=== PATIENT | male | born 1965 | race Two or more races ===

== ENCOUNTER 2016-09-27 19:44 | Emergency (ER) | payer OTHER ==
[~2016-09-27] VITALS: Ht 182.9 cm; Wt 87.0 kg
[~2016-09-27 19:44] MED LIST: ASPI81TA3 PO; BENA20TA48 PO
[2016-09-27 19:49] VITALS: Ht 182.9 cm; Wt 87.0 kg
[2016-09-27] MEDS ORDERED: SOD CHLORIDE 0.9% 500 ML IV STA (21:36)
[2016-09-27] MEDS ORDERED: morphine 4 MG/ML VIAL IV STA (21:36)
[2016-09-27] MEDS ORDERED: ONDANSETRON 4 MG INJ IV STA (21:36)
[2016-09-27] MEDS ORDERED: ASPIRIN 325 MG TAB PO STA (21:36)
[2016-09-27] MEDS ORDERED: NITROGLYCERIN 2% 1 GM OINT PKT TD STA (21:36)
[2016-09-27 22:21] LABS: BASOPHILS % 0.5 % (0.0-2.0); EOSINOPHILS # 0.3 10^3/ul (0.0-0.5); EOSINOPHILS % 3.6 % (0.0-7.0); LYMPHOCYTES # 2.8 10^3/ul (0.8-2.9); LYMPHOCYTES % 31.2 % (15.0-51.0); MEAN CORPUSCULAR HEMOGLOBIN 31.5 pg (29.0-33.0); MEAN CORPUSCULAR HGB CONC 34.2 g/dl (32.0-37.0); MEAN PLATELET VOLUME 10.7 fl (7.4-10.4); MONOCYTE # 0.7 10^3/ul (0.3-0.9); MONOCYTES % 8.1 % (0.0-11.0); NEUTROPHILS % 56.3 % (39.0-77.0); PLATELET COUNT 252 10^3/UL (140-415); RED BLOOD COUNT 4.13 10^6/ul (4.70-6.10); RED CELL DISTRIBUTION WIDTH 12.2 % (11.5-14.5); WHITE BLOOD COUNT 8.8 10^3/ul (4.8-10.8)
[2016-09-27 22:34] LABS: INR 1.02; PROTIME 13.4 Sec (12.2-14.2)
[2016-09-27 22:49] LABS: ALANINE AMINOTRANSFERASE 59 IU/L (13-69); ALBUMIN 4.2 g/dl (3.3-4.9); ALBUMIN/GLOBULIN RATIO 1.13; ALKALINE PHOSPHATASE 70 IU/L (42-121); ANION GAP 18 (8-16); ASPARTATE AMINO TRANSFERASE 33 IU/L (15-46); BILIRUBIN,INDIRECT 0.6 mg/dl (0-1.1); BILIRUBIN,TOTAL 0.6 mg/dl (0.2-1.3); BLOOD UREA NITROGEN 19 mg/dl (7-20); CALCIUM 9.5 mg/dl (8.4-10.2); CARBON DIOXIDE 28 mmol/L (21-31); CHLORIDE 102 mmol/L (97-110); CREATININE 0.94 mg/dl (0.61-1.24); GLUCOSE 114 mg/dl (70-220); POTASSIUM 3.8 mmol/L (3.5-5.1); SODIUM 144 mmol/L (135-144); TOTAL PROTEIN 7.9 g/dl (6.1-8.1)
--- NOTE | 2016-09-27 22:59 | RADRPT ---
PROCEDURE: XR Chest. CLINICAL INDICATION: Chest pain. TECHNIQUE: Single frontal view of the chest. COMPARISON: None. FINDINGS: Mild cardiomegaly. Hypoinflated lungs with mild vascular crowding at the lung bases. The lungs oth erwise clear. No signs of pleural fluid or pneumothorax are seen. The osseous structures and soft t issues are unremarkable. IMPRESSION: Hypoinflated lungs with mild vascular crowding at the lung bases. RPTAT: [facility] Physician Tulio Date Time Electronically viewed and signed by Physician Tulio on 09/27/2016 22:59 RS/
[2016-09-27 23:00] LABS: B-TYPE NATRIURETIC PEPTIDE 17 PG/ML (0-125)
[2016-09-27 23:04] LABS: TROPONIN-I < 0.012 ng/ml (0.00-0.12)
[2016-09-27 23:20] VITALS: TEMP 97.4
--- NOTE | 2016-09-27 23:33 | ERD ---
ER Documentation Chief Complaint Date/Time DATE: 09/27/16 TIME: 23:32 Chief Complaint pressure like chest pain radaiting to back x 2 days HPI A 51-year-old male with pressure-like chest pain rating to back for 2 days. He says he feels like he strained his chest wall when he picked up something heavy. Denies any diaphoresis or shortness of breath. Denies any nausea vomiting fevers or chills. Denies any other current issues. ROS All systems reviewed and are negative except as per history of present illness. Medications Home Meds Reported Medications Aspirin (Aspirin) 81 Mg Chew, 81 MG PO DAILY, TAB.CHEW 11/05/13 Benazepril Hcl* (Benazepril Hcl*) 20 Mg Tablet, 20 MG PO DAILY, TAB 11/05/13 Allergies Allergies: Coded Allergies: No Known Allergy (Unverified , 11/09/13) PMhx/Soc Medical and Surgical Hx: pt denies Surgical Hx History of Surgery: No Anesthesia Reaction: No Hx Neurological Disorder: No Hx Respiratory Disorders: No Hx Cardiac Disorders: Yes (htn, hyperlipidemia ) Hx Psychiatric Problems: No Hx Miscellaneous Medical Probl: No Hx Alcohol Use: No Hx Substance Use: No Hx Tobacco Use: No Smoking Status: Never smoker Physical Exam Vitals Vital Signs Date Time Temp Pulse Resp B/P Pulse Ox O2 Delivery O2 Flow Rate FiO2 09/27/16 23:20 97.4 78 20 127/82 99 Room Air 09/27/16 21:37 97.4 78 20 151/70 99 Room Air 09/27/16 19:49 97.4 98 20 170/88 99 Physical Exam Const: [] Head: Atraumatic Eyes: Normal Conjunctiva ENT: Normal External Ears, Nose and Mouth. Neck: Full range of motion..~ No meningismus. Resp: Clear to auscultation bilaterally Cardio: Regular rate and rhythm, no murmurs Abd: Soft, non tender, non distended. Normal bowel sounds Skin: No petechiae or rashes Back: No midline or flank tenderness Ext: No cyanosis, or edema Neur: Awake and alert Psych: Normal Mood and Affect Result Diagram: 09/27/16214709/27/162147 Results 24 hrs Laboratory Tests Test 09/27/16 21:48 White Blood Count 8.810^3/ul Red Blood Count 4.1310^6/ul Hemoglobin 13.0g/dl Hematocrit 38.0% Mean Corpuscular Volume 92.0fl Mean Corpuscular Hemoglobin 31.5pg Mean Corpuscular Hemoglobin Concent 34.2g/dl Red Cell Distribution Width 12.2% Platelet Count 60335^3/UL Mean Platelet Volume 10.7fl Neutrophils % 56.3% Lymphocytes % 31.2% Monocytes % 8.1% Eosinophils % 3.6% Basophils % 0.5% Nucleated Red Blood Cells % 0.0/100WBC Neutrophils # (Manual) 5.010^3/ul Lymphocytes # 2.810^3/ul Monocytes # 0.710^3/ul Eosinophils # 0.310^3/ul Basophils # 0.010^3/ul Nucleated Red Blood Cells # 0.010^3/ul Prothrombin Time 13.4Sec Prothrombin Time Ratio 1.0 INR International Normalized Ratio 1.02 Activated Partial Thromboplast Time 29.0Sec Sodium Level 144mmol/L Potassium Level 3.8mmol/L Chloride Level 102mmol/L Carbon Dioxide Level 28mmol/L Anion Gap 18 Blood Urea Nitrogen 19mg/dl Creatinine 0.94mg/dl Glucose Level 114mg/dl Calcium Level 9.5mg/dl Total Bilirubin 0.6mg/dl Direct Bilirubin 0.00mg/dl Indirect Bilirubin 0.6mg/dl Aspartate Amino Transf (AST/SGOT) 33IU/L Alanine Aminotransferase (ALT/SGPT) 59IU/L Alkaline Phosphatase 70IU/L Troponin I < 0.012ng/ml B-Type Natriuretic Peptide 17PG/ML Total Protein 7.9g/dl Albumin 4.2g/dl Globulin 3.70g/dl Albumin/Globulin Ratio 1.13 Current Medications Medications (Trade) Dose Ordered Sig/Leighton Route PRN Reason Start Time Stop Time Status Last Admin Dose Admin Sodium Chloride (NS) 500 ml @ 500 mls/hr Q1H STAT IV 09/27/16 21:36 09/27/16 22:35 DC 09/27/16 22:07 Aspirin (Aspirin) 325 mg ONCE STAT PO 09/27/16 21:36 09/27/16 21:37 DC 09/27/16 22:06 Nitroglycerin (Nitroglycerin 2% Oint) 1 inch ONCE STAT TD 09/27/16 21:36 09/27/16 21:37 DC 09/27/16 22:05 Morphine Sulfate (morphine) 4 mg ONCE STAT IV 09/27/16 21:36 09/27/16 21:37 DC 09/27/16 22:06 Ondansetron HCl (Zofran Inj) 4 mg ONCE STAT IV 09/27/16 21:36 09/27/16 21:37 DC 09/27/16 22:06 Procedures/MDM EKG: Rate/Rhythm: Normal Sinus Rhythm QRS, ST, T-waves: No changes consistent w/ acute ischemia Impression: No evidence of ischemia or arrhythmia Chest X-ray 1V Interpreted by me: Soft Tissue: No acute abnormalities Bones: No acute abnormalities Mediastinum/Cardiac Silhouette/Lungs: No acute abnormalities Patient's thoracic symptoms have stabilized while in the department and are stable for outpatient follow up. Exam and work up not consistent w/ ischemia, arrhythmia, PE or dissection. Departure Diagnosis: Primary Impression: Chest pain Chest pain type: unspecified Qualified Code: R07.9 - Chest pain, unspecified type Condition: Stable VALARIE HUNG Sep 27, 2016 23:33
[2016-09-27] MEDS ORDERED: AMLO5TAB4 PO (23:37)
[2016-09-27] MEDS ORDERED: IBUP800T25 PO (23:37)
[2016-09-27] MEDS ORDERED: OMEP20CA16 PO (23:37)
[2016-09-27] MEDS ORDERED: FISH12002 PO (23:39)
[2016-09-27] MEDS ORDERED: TRAM50TA2 PO (23:56)
[2016-09-28 00:33] VITALS: BP 112/74; PULSE 77; RESP 18
== END 2016-09-28 00:29 | disposition home or self-care (01) ==
LOC: E/R 19:44
DX: R07.89 Other chest pain (principal); I10 Essential (primary) hypertension; Z79.82 Long term (current) use of aspirin
CPT/HCPCS: 36415; 71010; 80053; 83880; 84484; 85025; 85610; 85730; 93005; 96374; 96375; J2270; J2405; J7040; Z7502; Z7610